=== PATIENT | male | born 1975 | race Two or more races ===

== ENCOUNTER 2016-11-03 06:53 | Emergency (ER) | payer OTHER ==
[2016-11-03 06:58] VITALS: BP 136/109; PULSE 67; RESP 16; TEMP 98.8; O2SAT 94
[2016-11-03] MEDS ORDERED: INDOMETHACIN 25 MG CAP PO ONE (07:25)
--- NOTE | 2016-11-03 07:31 | EDPHY ---
H & P Time Seen by Provider: 11/03/16 07:05 HPI/ROS: HPI Gout. 41-year-old male by private vehicle with his . They are visiting from [place]. They are returning to [place] tomorrow. He complains of pain in the right 1st metatarsal phalangeal joint of his right foot, starting last night. He has a history of gout. He has had gout exacerbation in this toe before. He describes his pain as identical to previous flare ups of gout. He denies any history of trauma. ROS: Constitutional: No fever, no chills. No weakness. Musculoskeletal: No back pain. No neck pain. As above. Skin: No rashes. Neurological: No focal weakness or altered sensation. Past medical history: Gout. Primary care is in [place]. Social history: Here with his . Nonsmoker. Physical Exam: General Appearance: Alert, no distress. This patient is responding to questions appropriately and in full sentences. This patient appears well- hydrated and well-nourished. Eyes: Pupils equal and round no pallor or injection. No lid edema, erythema or injection. Right foot exam: He has a small amount of faint erythema over the right big toe metatarsophalangeal joint dorsal medial aspect. No associated warmth. No spreading erythema or edema. Capillary refill is normal in all digits of the right foot. The right foot is otherwise neurovascularly intact. No associated ecchymosis, deformity or other signs of traumatic injury. Neurological: Motor sensory function is grossly intact. Cranial nerves are normal. Gait is normal. Skin: Warm and dry, no rashes. Musculoskeletal: Neck is supple and nontender. Extremities are symmetrical. All joints range without pain or impingement. Psychiatric: No agitation. No depression. Database: EKG: Imaging: Procedures: Emergency department course: After my evaluation, the patient was given 50 mg of indomethacin in the emergency department. Plan will be to prescribe him indomethacin at 50 mg three times daily for the next 3 days. He will return to [place] tomorrow. He will see his primary care physician tomorrow or Friday. He is to discuss treatment with allopurinol and possibly colchicine. He is in agreement with this plan. Return to emergency department precautions were discussed with him. All of his questions were answered. He was discharged in good condition with his . Differential Diagnosis: The differential diagnosis on this patient includes but is not limited to gout, pseudogout of right big toe. Septic arthritis, traumatic injury unlikely. This represents a partial list of diagnoses considered. These considerations are based on history, physical exam, past history, reassessment and diagnostic testing. Smoking Status: Never smoked Constitutional: Initial Vital Signs Temperature (C) 37.1 C 11/03/16 06:56 Heart Rate 67 11/03/16 06:56 Respiratory Rate 16 11/03/16 06:56 Blood Pressure 136/109 H 11/03/16 06:56 O2 Sat (%) 94 11/03/16 06:56 O2 Delivery Mode Room Air Allergies/Adverse Reactions: No Known Allergies Allergy (Unverified 11/03/16 06:56) Home Medications: Medication Instructions Recorded Indomethacin [Indocin 25 mg (*)] 50 mg PO TID #20 cap 11/03/16 Departure - Departure Disposition: Home, Routine, Self-Care Clinical Impression: Gouty arthritis of toe of right foot Condition: Good Instructions: Gout (ED) Additional Instructions: Read and follow provided instructions. Follow-up with your primary care physician in 1-2 days for re-evaluation. Discussed treatment with allopurinol and colchicine for further management of your gout. Take medication as prescribed. Return to the emergency department for worsening pain, fever, swelling, discoloration or other serious concerns. Referrals: NONE *PRIMARY CARE P,. [Unknown] - As per Instructions Prescriptions: Indomethacin [Indocin 25 mg (*)] 50 mg PO TID #20 cap
== END 2016-11-03 07:47 | disposition home or self-care (01) ==
DX: M10.071 Idiopathic gout, right ankle and foot (principal)